=== PATIENT | female | born 1965 | race Caucasian/White ===

== ENCOUNTER 2017-05-07 15:18 | Inpatient (IN) | payer BC ==
[~2017-05-07] VITALS: Ht 154.9 cm; Wt 62.5 kg
[2017-05-07] MEDS ORDERED: methylPREDNISolone SOD SUCC 125 MG/2 ML IVP ONE (15:30)
[2017-05-07] MEDS ORDERED: ALBUTEROL/IPRATROPIUM 2.5MG/0.5MG, 3 ML NPPB ONE (15:30)
[2017-05-07] MEDS ORDERED: SODIUM CHLORIDE FLUSH 10ML SYR IVF ONE (15:30)
[2017-05-07] MEDS ORDERED: methylPREDNISolone SOD SUCC 125 MG/2 ML ONE (15:51)
[2017-05-07] MEDS ORDERED: IPRATROPIUM 0.5 MG/2.5 ML INHA ONE (15:53)
[2017-05-07] MEDS ORDERED: ALBUTEROL 0.5%, 20ML ONE (15:53)
[2017-05-07 15:56] LABS: HEMOGLOBIN 16.1 g/dL (11.7-16.4); WHITE BLOOD COUNT 7.6 x10^3/uL (3.4-10)
[2017-05-07] MEDS ORDERED: IPRATROPIUM 0.5 MG/2.5 ML INHA NPPB ONE (16:00)
[2017-05-07] MEDS ORDERED: ALBUTEROL 0.5%, 20ML NPPBCONT ONE (16:00)
[2017-05-07 16:02] LABS: BLOOD UREA NITROGEN 15 mg/dL (7-18)
[2017-05-07] MEDS ORDERED: SODIUM CHLORIDE FLUSH 10ML SYR IVF PRN (17:30)
[2017-05-07] MEDS ORDERED: ACETAMINOPHEN 325 MG TABLET ONE (18:08)
[2017-05-07] MEDS ORDERED: ACETAMINOPHEN 325 MG TABLET PO ONE (18:30)
[2017-05-07 18:47] VITALS: BP 130/81
[2017-05-07] MEDS ORDERED: POLYETHYLENE GLYCOL 17 GM PACKET PO PRN (19:00)
[2017-05-07] MEDS: ALBUTEROL SULFATE 2.5 MG/3 ML NPPB SCH ×2 (19:00→21:30)
[2017-05-07] MEDS ORDERED: ACETAMINOPHEN 325 MG TABLET PO PRN (19:00)
[2017-05-07] MEDS ORDERED: BISACODYL 10 MG SUPP PR PRN (19:00)
[2017-05-07] MEDS ORDERED: DOCUSATE 100 MG CAPSULE PO PRN (19:00)
[2017-05-07] MEDS: FAMOTIDINE 20 MG TABLET PO SCH (20:55)
[2017-05-07] MEDS: SODIUM CHLORIDE 0.9% 1,000 ML IV SCH (20:55)
[2017-05-07] MEDS: ENOXAPARIN 40 MG/0.4 ML SQ SCH (20:56)
[2017-05-07] MEDS: methylPREDNISolone SOD SUCC 125 MG/2 ML IVPush SCH (20:56)
[2017-05-08 01:30] VITALS: BP 150/67
[2017-05-08 01:59] VITALS: BP 130/81
[2017-05-08] MEDS: methylPREDNISolone SOD SUCC 125 MG/2 ML IVPush SCH ×4 (03:04→21:11)
[2017-05-08] MEDS: ALBUTEROL SULFATE 2.5 MG/3 ML NPPB SCH ×6 (03:05→22:35)
[2017-05-08] MEDS: SODIUM CHLORIDE 0.9% 1,000 ML IV SCH (04:22)
[2017-05-08 05:16] LABS: HEMATOCRIT 44.3 % (34.6-47.8); HEMOGLOBIN 14.8 g/dL (11.7-16.4); WHITE BLOOD COUNT 6.8 x10^3/uL (3.4-10)
[2017-05-08 05:29] LABS: ASPARTATE AMINO TRANSFERASE 15 U/L (15-37); BLOOD UREA NITROGEN 13 mg/dL (7-18)
[2017-05-08] MEDS: LEVOTHYROXINE 112 MCG TABLET PO SCH (05:37)
[2017-05-08 06:54] VITALS: BP 109/65
[2017-05-08] MEDS: FAMOTIDINE 20 MG TABLET PO SCH ×2 (07:50→21:11)
[2017-05-08 12:46] VITALS: BP 99/64
[2017-05-08] MEDS ORDERED: PARO10TA56 PO (17:04)
[2017-05-08] MEDS ORDERED: MONT10TA6 PO (17:08)
[2017-05-08] MEDS ORDERED: ALPR1TAB2 PO (17:08)
[2017-05-08] MEDS ORDERED: LEVO112T4 PO (17:08)
[2017-05-08] MEDS ORDERED: ALPRazolam 1MG TABLET PO PRN (18:00)
[2017-05-08 18:47] VITALS: BP 110/70
[2017-05-08] MEDS ORDERED: PAROXETINE 10 MG TABLET PO SCH (21:00)
[2017-05-08] MEDS: ENOXAPARIN 40 MG/0.4 ML SQ SCH (21:11)
[2017-05-09 00:16] VITALS: BP 112/73
[2017-05-09] MEDS: methylPREDNISolone SOD SUCC 125 MG/2 ML IVPush SCH ×3 (02:45→16:01)
[2017-05-09] MEDS: LEVOTHYROXINE 112 MCG TABLET PO SCH (06:03)
[2017-05-09] MEDS: ALBUTEROL SULFATE 2.5 MG/3 ML NPPB SCH ×4 (06:50→18:15)
[2017-05-09 07:02] VITALS: BP 113/60
[2017-05-09] MEDS: FAMOTIDINE 20 MG TABLET PO SCH (07:32)
[2017-05-09 14:31] VITALS: BP 124/78
[2017-05-09] MEDS ORDERED: BISACODYL 10 MG SUPP PR PRN ×2 (15:00)
[2017-05-09] MEDS ORDERED: POLYETHYLENE GLYCOL 17 GM PACKET PO PRN ×2 (15:00)
[2017-05-09] MEDS ORDERED: DOCUSATE 100 MG CAPSULE PO PRN ×2 (15:00)
[2017-05-09] MEDS ORDERED: PRED50TA PO (17:33)
[2017-05-09] MEDS ORDERED: maalox/diphenh/lido/sucralfate 5 ML PO ONE (19:00)
[2017-05-09] MEDS ORDERED: NYST1000 PO (19:30)
[2017-05-09] MEDS ORDERED: NYSTATIN 500,000 UNITS/5 ML UDC PO SCH (21:00)
== END 2017-05-09 19:45 | disposition home or self-care (01) | DRG 202 ==
LOC: ED 16:22 → EDIP 17:13 → 3NE 18:16
PROVIDERS: ADMIT Internal Medicine; ATTEND Internal Medicine
DX: J45.41 Moderate persistent asthma with (acute) exacerbation (principal); J96.91 Respiratory failure, unspecified with hypoxia; E03.9 Hypothyroidism, unspecified; F41.9 Anxiety disorder, unspecified; Z80.8 Family history of malignant neoplasm of other organs or systems; Z90.710 Acquired absence of both cervix and uterus; Z79.899 Other long term (current) drug therapy; Z88.6 Allergy status to analgesic agent; Z88.1 Allergy status to other antibiotic agents; Z87.891 Personal history of nicotine dependence
CPT/HCPCS: 36415; 71010; 80048; 80053; 82040; 84439; 84443; 85025; 93005; 94640; 94644; 96374; J1650; J7613; J7644; J2930; J7030

== ENCOUNTER → 2017-07-01 | Outpatient (CLI) | payer BC ==
[~2017-07-01] MED LIST: ALPR1TAB2 PO; LEVO112T4 PO; MONT10TA6 PO; NYST1000 PO; PARO10TA56 PO; PRED50TA PO
== END | disposition home or self-care (01) ==
LOC: CFH 15:30
PROVIDERS: ATTEND Internal Medicine Critical Care Medicine
DX: J47.9 Bronchiectasis, uncomplicated (principal); J92.9 Pleural plaque without asbestos; J45.50 Severe persistent asthma, uncomplicated
CPT/HCPCS: 71250

== ENCOUNTER 2017-08-15 21:13 | Emergency (ER) | payer BC ==
[~2017-08-15] VITALS: Ht 154.9 cm; Wt 61.4 kg
[2017-08-15] MEDS ORDERED: MAALOX/HYOSCYAMINE/LIDOCAINE 45 ML BTL ONE (21:45)
[2017-08-15] MEDS ORDERED: HYDROmorphone 2 MG/ML, 1ML ONE (21:45)
[2017-08-15] MEDS ORDERED: ONDANSETRON 2MG/ML, 2ML ONE (21:45)
[2017-08-15] MEDS ORDERED: FAMOTIDINE 20 MG/2 ML ONE (21:46)
[2017-08-15 21:57] LABS: HEMATOCRIT 45.9 % (34.6-47.8); HEMOGLOBIN 15.8 g/dL (11.7-16.4); WHITE BLOOD COUNT 11.5 x10^3/uL (3.4-10)
[2017-08-15] MEDS ORDERED: SODIUM CHLORIDE 0.9% 1,000ML IVBOLUS ONE (22:00)
[2017-08-15] MEDS ORDERED: ONDANSETRON 2MG/ML, 2ML IVPush ONE (22:00)
[2017-08-15] MEDS ORDERED: MAALOX/HYOSCYAMINE/LIDOCAINE 45 ML BTL PO ONE (22:00)
[2017-08-15] MEDS ORDERED: HYDROmorphone 1 MG/ML, 1ML IVPush PRN (22:00)
[2017-08-15] MEDS ORDERED: FAMOTIDINE 20 MG/2 ML IVP ONE (22:00)
[2017-08-15 22:09] LABS: ASPARTATE AMINO TRANSFERASE 19 U/L (15-37); BLOOD UREA NITROGEN 19 mg/dL (7-18)
[2017-08-15 22:59] LABS: HCG UR LOT HCG7030192
[2017-08-15 23:03] LABS: HCG UR OBC PASS; PATH.CAST-FLAG NOT PRESENT; SPERM-FLAG NOT PRESENT; SRC-FLAG NOT PRESENT; XTAL-FLAG NOT PRESENT; YLC-FLAG NOT PRESENT
[2017-08-15 23:23] VITALS: BP 114/64
== END 2017-08-16 00:06 | disposition home or self-care (01) ==
LOC: ED 22:41
DX: K26.3 Acute duodenal ulcer without hemorrhage or perforation (principal); Z88.1 Allergy status to other antibiotic agents; Z88.6 Allergy status to analgesic agent; Z87.891 Personal history of nicotine dependence; K21.9 Gastro-esophageal reflux disease without esophagitis; J45.909 Unspecified asthma, uncomplicated
CPT/HCPCS: 36415; 71010; 76700; 80053; 81001; 81025; 83690; 85025; 87086; 93005; 96361; 96374; 96375; 99285; J1170; J2405; J7030; S0028

== ENCOUNTER → 2018-01-26 | Outpatient (CLI) | payer BC ==
[~2018-01-26] MED LIST changes: +ALBU6.7H INH; +ESTR0.6246 PO; +FLUT1DIS5 IH; +SPIRIV; +spiriva INH
== END | disposition home or self-care (01) ==
LOC: RAD 10:37
PROVIDERS: ATTEND Internal Medicine Critical Care Medicine
DX: R91.8 Other nonspecific abnormal finding of lung field (principal); J45.50 Severe persistent asthma, uncomplicated
CPT/HCPCS: 71046

== ENCOUNTER 2018-11-18 12:05 | Day surgery (SDC) | payer BC ==
[~2018-11-18] VITALS: Ht 154.9 cm; Wt 62.9 kg
[2018-11-18 12:45] VITALS: BP 110/75
[2018-11-18] MEDS ORDERED: LIDOCAINE-MPF 1%, 5ML ONE (14:49)
[2018-11-18] MEDS ORDERED: FLUMAZENIL 0.1 MG/1 ML, 5ML ONE (14:50)
[2018-11-18] MEDS ORDERED: NALOXONE 1 MG/ML, 2ML ONE (14:50)
[2018-11-18] MEDS ORDERED: MIDAZOLAM 1 MG/ML, 5ML ONE (14:50)
[2018-11-18] MEDS ORDERED: FENTANYL PF 100 MCG/2ML ONE (14:50)
== END 2018-11-18 17:20 | disposition home or self-care (01) ==
LOC: OUT 12:05
PROVIDERS: ATTEND Internal Medicine
DX: M79.89 Other specified soft tissue disorders (principal); J45.909 Unspecified asthma, uncomplicated; F32.9 Major depressive disorder, single episode, unspecified; F41.9 Anxiety disorder, unspecified; E89.0 Postprocedural hypothyroidism; Z90.710 Acquired absence of both cervix and uterus; Z87.891 Personal history of nicotine dependence; Z88.1 Allergy status to other antibiotic agents; Z88.5 Allergy status to narcotic agent; Z87.01 Personal history of pneumonia (recurrent)
CPT/HCPCS: 20225; 77012; 88305; 99156; J2250; J3010; 88341; 88342; 99157; J2310

== ENCOUNTER 2019-01-09 08:46 | Outpatient (CLI) | payer BC | END 2019-01-09 23:59 | disposition home or self-care (01) | LOC: ROC 08:46 | PROVIDERS: ATTEND Radiology Radiation Oncology | DX: D48.1 Neoplasm of uncertain behavior of connective and other soft tissue (principal); J45.909 Unspecified asthma, uncomplicated; F32.9 Major depressive disorder, single episode, unspecified; E03.9 Hypothyroidism, unspecified; F17.200 Nicotine dependence, unspecified, uncomplicated; Z90.710 Acquired absence of both cervix and uterus; Z88.1 Allergy status to other antibiotic agents; Z88.5 Allergy status to narcotic agent | CPT/HCPCS: 99214; G0463 ==

== ENCOUNTER 2019-01-27 14:26 | Emergency (ER) | payer BC ==
[~2019-01-27] VITALS: Ht 154.9 cm; Wt 63.0 kg
--- NOTE | 2019-01-27 14:53 | NUR ---
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 PT PLACED ON MONITOR, SAT 94% ON RA
[2019-01-27] MEDS ORDERED: ALBUTEROL/IPRATROPIUM 2.5MG/0.5MG, 3 ML NPPB ONE (15:30)
[2019-01-27] MEDS ORDERED: SODIUM CHLORIDE FLUSH 10ML SYR IVF ONE (15:30)
[2019-01-27] MEDS ORDERED: ALBUTEROL SULFATE 2.5 MG/3 ML NPPB SCH (15:30)
[2019-01-27] MEDS ORDERED: SODIUM CHLORIDE 0.9% 1,000ML IVBOLUS ONE (15:30)
[2019-01-27] MEDS ORDERED: ACETAMINOPHEN 500 MG TABLET PO ONE (15:30)
[2019-01-27 15:53] LABS: RAPID INFLUENZA A Negative (Negative); RAPID INFLUENZA B Negative (Negative)
[2019-01-27 16:02] LABS: BASOPHILS % (AUTO) 0 % (0-1); EOSINOPHILS # (AUTO) 0.14 x10^3/uL (0-0.4); EOSINOPHILS % (AUTO) 4 % (1-7); LYMPHOCYTES % (AUTO) 9 % (22-44); MD NO; MEAN CORPUSCULAR HEMOGLOBIN 33.3 pg (27.0-34.8); MEAN CORPUSCULAR HGB CONC 33.8 g/dL (32.4-35.8); MEAN CORPUSCULAR VOLUME 98.5 fL (80-100); MEAN PLATELET VOLUME 8.1 fL (7.4-10.4); MONOCYTES # (AUTO) 0.17 x10^3/uL (0.2-0.8); MONOCYTES % (AUTO) 5 % (2-9); NEUTROPHILS % (AUTO) 82 % (42-75); PLATELET COUNT 131 x10^3/uL (130-400); RED CELL DISTRIBUTION WIDTH 13.3 % (9.6-15.2)
[2019-01-27] MEDS ORDERED: ACETAMINOPHEN 500 MG TABLET ONE (16:02)
--- NOTE | 2019-01-27 16:02 | NUR ---
PT RESTING IN [facility], AWAITING LAB AND RAD RESULTS. CALL LIGHT WITHIN REACH
[2019-01-27 16:09] LABS: ALBUMIN 3.4 g/dL (3.4-5.0); ANION GAP 10 mmol/L (5-15); CALCIUM 7.7 mg/dL (8.5-10.1); CHLORIDE 103 mmol/L (98-107)
[2019-01-27 16:19] LABS: ALANINE AMINOTRANSFERASE 34 U/L (12-78); ALKALINE PHOSPHATASE 64 U/L (45-117); BILIRUBIN,TOTAL 0.3 mg/dL (0.2-1.0); CREATININE 1.42 mg/dL (0.55-1.02); TOTAL PROTEIN 6.7 g/dL (6.4-8.2)
--- NOTE | 2019-01-27 16:28 | NUR ---
2ND PAGE FOR RT FOR TREATMENT
[2019-01-27] MEDS ORDERED: ALBUTEROL/IPRATROPIUM 2.5MG/0.5MG, 3 ML ONE (16:36)
[2019-01-27] MEDS ORDERED: ALBUTEROL SULFATE 2.5MG/0.5ML ONE (16:36)
[2019-01-27 16:46] LABS: MICROSCOPIC NOT IND
[2019-01-27 16:49] LABS: CULTURE INDICATED? NO
--- NOTE | 2019-01-27 17:08 | NUR ---
PT TO CT
--- NOTE | 2019-01-27 18:06 | NUR ---
MD AT BEDSIDE, PT RESTING IN [facility], NO NEEDS AT THIS TIME
[2019-01-27] MEDS ORDERED: OMNIPAQUE 350 MG/ML, 100ML BOTTLE ONE (18:16)
[2019-01-27 19:32] VITALS: BP 107/60
== END 2019-01-27 19:35 | disposition home or self-care (01) ==
LOC: ED 18:14
DX: J45.41 Moderate persistent asthma with (acute) exacerbation (principal); B34.9 Viral infection, unspecified; C41.9 Malignant neoplasm of bone and articular cartilage, unspecified; K21.9 Gastro-esophageal reflux disease without esophagitis; Z87.891 Personal history of nicotine dependence
CPT/HCPCS: 36415; 71045; 71275; 80053; 81003; 83605; 83880; 84145; 85025; 87040; 87400; 93005; 94640; 96360; 96361; 99284; J7030; J7512; J7613; J7620; Q9967

== ENCOUNTER 2019-03-31 09:56 | Emergency (ER) | payer BC ==
[~2019-03-31] VITALS: Ht 154.9 cm; Wt 60.1 kg
[2019-03-31 10:15] VITALS: BP 109/66
== END 2019-03-31 13:26 | disposition home or self-care (01) ==
LOC: ED 10:51
DX: R94.5 Abnormal results of liver function studies (principal); R10.31 Right lower quadrant pain; R10.11 Right upper quadrant pain; K21.9 Gastro-esophageal reflux disease without esophagitis; J45.909 Unspecified asthma, uncomplicated; Z90.710 Acquired absence of both cervix and uterus
CPT/HCPCS: 36415; 71045; 76700; 80053; 80074; 81001; 82140; 82248; 83690; 85025; 85610; 85651; 86140; 87086; 99284

== ENCOUNTER 2019-04-03 07:34 | Inpatient (IN) | payer BC ==
[~2019-04-03] VITALS: Ht 154.9 cm; Wt 63.1 kg
[2019-04-12 12:56] VITALS: BP 117/76
== END 2019-04-12 14:45 | disposition home or self-care (01) | DRG 844 ==
LOC: ED 09:44 → EDIP 11:39 → 3NE 12:01 → EDIP 12:17 → 3NW 12:38 → DCLOUNGE 04-12 14:37
PROVIDERS: ADMIT Internal Medicine; ATTEND Internal Medicine
PROC: 0FB03ZX Excision of Liver, Percutaneous Approach, Diagnostic (ICD-10-PCS; principal; 2019-04-06)
DX: D36.7 Benign neoplasm of other specified sites (principal); B17.9 Acute viral hepatitis, unspecified; R18.8 Other ascites; B37.3 Candidiasis of vulva and vagina; D70.9 Neutropenia, unspecified; E88.09 Other disorders of plasma-protein metabolism, not elsewhere classified; E89.0 Postprocedural hypothyroidism; F32.9 Major depressive disorder, single episode, unspecified; F41.9 Anxiety disorder, unspecified; I10 Essential (primary) hypertension; J44.9 Chronic obstructive pulmonary disease, unspecified; K21.9 Gastro-esophageal reflux disease without esophagitis; G89.29 Other chronic pain; K59.00 Constipation, unspecified; K72.90 Hepatic failure, unspecified without coma; M53.3 Sacrococcygeal disorders, not elsewhere classified; I25.2 Old myocardial infarction; Z80.3 Family history of malignant neoplasm of breast; Z80.49 Family history of malignant neoplasm of other genital organs; Z80.8 Family history of malignant neoplasm of other organs or systems; Z85.828 Personal history of other malignant neoplasm of skin; Z87.11 Personal history of peptic ulcer disease; Z87.891 Personal history of nicotine dependence; Z90.710 Acquired absence of both cervix and uterus; Z92.3 Personal history of irradiation; Z79.899 Other long term (current) drug therapy; Z79.52 Long term (current) use of systemic steroids
CPT/HCPCS: 36415; 47000; 74177; 74181; 76942; 80053; 80307; 81001; 81025; 82247; 82248; 83516; 83690; 83735; 84100; 84443; 85025; 85610; 85730; 87086; 88307; 88313; 88342; 96361; 96374; 96375; 99156; 99157; G0378; J2250; J2405; J3010; J2270; J7030; J7512; Q0177

== ENCOUNTER 2019-09-20 12:26 | Outpatient (CLI) | payer BC ==
[~2019-09-20 12:26] MED LIST changes: -ALBU6.7H INH; +ALBU6.7H8 INH; +LORA-446 PO; +ONDA8TAB9 PO; +OXYC5CAP2 PO; +POLY17PO5 PO; +PRED20TA PO; +SULF1TAB24 PO
[2019-09-20] MEDS ORDERED: GADOTERATE 5 MMOL/10 ML VIAL ONE (14:32)
== END 2019-09-20 23:59 | disposition home or self-care (01) ==
LOC: CFH 12:26
PROVIDERS: ATTEND Internal Medicine
DX: D48.1 Neoplasm of uncertain behavior of connective and other soft tissue (principal)
CPT/HCPCS: 73720; 73723; A9575